=== PATIENT | male | born 1965 | race Asian ===

== ENCOUNTER 2016-09-11 09:38 | Day surgery (SDC) | payer OTHER ==
[~2016-09-11] VITALS: Ht 175.3 cm; Wt 81.2 kg
== END 2016-09-11 12:15 | disposition short-term general hospital (02) ==
LOC: SURGOP 09:38
PROC: 0DJD8ZZ Inspection of Lower Intestinal Tract, Via Natural or Artificial Opening Endoscopic (ICD-10-PCS; principal; 2016-09-11)
DX: Z12.11 Encounter for screening for malignant neoplasm of colon (principal); Z82.49 Family history of ischemic heart disease and other diseases of the circulatory system; Z83.3 Family history of diabetes mellitus
CPT/HCPCS: G0121; J2175; J2250